=== PATIENT | female | born 2000 | race Caucasian/White ===

== ENCOUNTER 2019-02-17 17:31 | Outpatient (CLI) | payer OTHER ==
[~2019-02-17 17:31] MED LIST: FERRO-TIME325 MG PO; KEFLEX500 MG PO; PRENATAL TABLE1 EAC1 PO
[2019-02-18] MEDS ORDERED: KEFLEX500 MG PO ×2 (11:55→11:58)
== END 2019-02-18 14:32 | disposition home or self-care (01) ==
LOC: OBS/DEL 17:31
DX: O16.3 Unspecified maternal hypertension, third trimester (principal); O23.43 Unspecified infection of urinary tract in pregnancy, third trimester; Z34.83 Encounter for supervision of other normal pregnancy, third trimester

== ENCOUNTER 2019-02-21 12:30 | Inpatient (IN) | payer OTHER ==
[~2019-02-21] VITALS: Ht 157.5 cm; Wt 90.7 kg
== END 2019-02-26 14:04 | disposition home or self-care (01) | DRG 807 ==
LOC: OB/GYN 02-24 05:12 → LDR 02-24 05:12 → OB/GYN 02-24 16:25
PROVIDERS: ADMIT Specialist
PROC: 10E0XZZ Delivery of Products of Conception, External Approach (ICD-10-PCS; principal; 2019-02-24)
PROC: 0HQ9XZZ Repair Perineum Skin, External Approach (ICD-10-PCS; 2019-02-24)
PROC: 3E033VJ Introduction of Other Hormone into Peripheral Vein, Percutaneous Approach (ICD-10-PCS; 2019-02-24)
PROC: 10907ZC Drainage of Amniotic Fluid, Therapeutic from Products of Conception, Via Natural or Artificial Opening (ICD-10-PCS; 2019-02-24)
PROC: 4A1HXCZ Monitoring of Products of Conception, Cardiac Rate, External Approach (ICD-10-PCS; 2019-02-24)
DX: O70.0 First degree perineal laceration during delivery (principal); Z37.0 Single live birth; Z3A.38 38 weeks gestation of pregnancy